=== PATIENT | female | born 1985 | race Two or more races ===

== ENCOUNTER 2020-07-26 19:54 | Emergency (ER) | payer SELFPAY ==
[~2020-07-26] VITALS: Ht 162.6 cm; Wt 74.8 kg
[2020-07-26 20:42] VITALS: BP 136/84
[2020-07-27] MEDS ORDERED: DOXYCYCLINE 100 MG TAB/CAP PO ONE (01:45)
== END 2020-07-27 01:38 | disposition home or self-care (01) ==
LOC: ER 19:54
DX: U07.1 COVID-19 (principal); J45.909 Unspecified asthma, uncomplicated
CPT/HCPCS: 36415; 71045; 87426

== ENCOUNTER 2021-03-05 07:57 | Emergency (ER) | payer BC, OTHER ==
[~2021-03-05] VITALS: Ht 162.6 cm; Wt 75.3 kg
[2021-03-05] MEDS ORDERED: amLODIPine BESYLATE 5 MG TAB PO ONE (08:45)
[2021-03-05 09:40] LABS: Basophils # (auto) 0.1 10 ^3/uL (0-0.2); Basophils % (auto) 0.8 % (0.0-2.0); Eosinophils # (auto) 0.2 10 ^3/uL (0-0.8); Eosinophils % (auto) 2.6 % (0.0-7.0); Hematocrit 44.5 % (36.0-46.0); Hemoglobin 15.9 g/dL (12.2-16.2); Lymphocytes % (auto) 38.3 % (10.0-50.0); Mean Corpuscular Hemoglobin 34.7 pg (28.0-32.0); Mean Corpuscular Hgb Conc. 35.6 g/dL (32.0-36.0); Mean Corpuscular Volume 97.6 fL (80.0-100.0); Monocytes # (auto) 0.5 10 ^3/uL (0-1.3); Monocytes % (auto) 6.7 % (0.0-12.0); Neutrophils # (auto) 4.1 10 ^3/uL (1.6-8.6); Neutrophils % (auto) 51.6 % (37.0-80.0); Platelet Count (auto) 249 10^3/uL (140-450); Red Blood Cells 4.56 10^6/uL (4.0-5.20); Red Cell Distribution Width 12.4 % (11.8-14.3); White Blood Cell 7.8 10^3/uL (4.4-10.8)
[2021-03-05 10:00] LABS: Alanine Aminotransferase 84 U/L (13-56); Albumin 4.1 g/dL (3.4-5.0); Anion Gap 9 (5-15); Blood Urea Nitrogen 12 mg/dL (7-18); Calcium 9.1 mg/dL (8.5-10.1); Carbon Dioxide 23 mmol/L (21-32); Chloride 106 mmol/L (98-107); Glucose 113 mg/dL (74-106); Potassium 3.8 mmol/L (3.5-5.1); Sodium 138 mmol/L (136-145)
[2021-03-05 10:05] LABS: Alkaline Phosphatase 72 U/L (45-117); Aspartate Aminotransferase 41 U/L (15-37); BUN/Creatinine Ratio 21.1; Bilirubin, Total 0.5 mg/dL (0.2-1.0); GFR African American 154 mL/min; GFR Non-African American 128 mL/min; Total Protein 8.1 g/dL (6.4-8.2)
[2021-03-05 10:45] VITALS: BP 132/96
== END 2021-03-05 11:49 | disposition home or self-care (01) ==
LOC: ER 07:57
DX: I16.0 Hypertensive urgency (principal); R51.9 Headache, unspecified; I12.9 Hypertensive chronic kidney disease with stage 1 through stage 4 chronic kidney disease, or unspecified chronic kidney disease; N18.9 Chronic kidney disease, unspecified; Z88.1 Allergy status to other antibiotic agents
CPT/HCPCS: 36415; 70450; 80053; 84484; 85025; 85049